=== PATIENT | male | born 1990 | race Caucasian/White ===

== ENCOUNTER 2020-05-03 09:45 | Emergency (ER) | payer OTHER ==
[~2020-05-03] VITALS: Ht 190.5 cm; Wt 113.4 kg
[2020-05-03] MEDS ORDERED: PROMETH-CODEIN 65 ML PO (10:49)
[2020-05-03] MEDS ORDERED: SENNA-DOCUSATE1 EAC1 PO (10:49)
[2020-05-03] MEDS ORDERED: TESSALON PERLE100 MG PO (10:49)
[2020-05-03 11:06] VITALS: BP 109/82
== END 2020-05-03 11:05 | disposition home or self-care (01) ==
LOC: ER 09:45
DX: U07.1 COVID-19 (principal); M79.10 Myalgia, unspecified site